=== PATIENT | female | born 1950 | race Caucasian/White ===

== ENCOUNTER 2017-03-16 09:20 | Emergency (ER) | payer OTHER ==
[2017-03-16 09:33] VITALS: BP 151/83; PULSE 91; RESP 18; TEMP 97.2; O2SAT 94
--- NOTE | 2017-03-16 09:54 | EDPHY ---
HPI/HX/ROS/PE/MDM Narrative: CHIEF COMPLAINT:Sore throat HPI: The patient is a 66-year-old female with no significant PMH. She complains of sore throat and cough for approximately 2-3 days. No fever. No body aches. No difficulty eating foods or water. No abdominal pain. No SOB. She got a flu shot this year. REVIEW OF SYSTEMS: Aside from elements discussed in the HPI, a comprehensive 10-point review of systems was reviewed and is negative. PMH: None significant. SOCIAL HISTORY: Denies drug or alcohol abuse. PHYSICAL EXAM: General:Patient is alert, in no acute distress. ENT: Hoarse voice. No drooling. Mild pharyngeal erythema. No exudates. No tonsillomegaly. No asymmetry. Neck: Normal inspection. Full range of motion. Respiratory:No respiratory distress. Breath sounds normal bilaterally. Cardiovascular: Regular rate and rhythm. Strong peripheral pulses. Normal cap refill. Neuro: Oriented x3. Normal motor function. Normal sensory function. MDM: Patient presents with pharyngitis. No evidence of [employer] or dehydration. No fever or body aches to suggest flu. Strep negative. - Data Points Laboratory Results: 03/16/17 03/16/17 Unknown 09:30 Group A Strep Screen NEGATIVE (NEGATIVE) Group A Strep DNA Pending General Time Seen by Provider: 03/16/17 09:27 Initial Vital Signs: Initial Vital Signs Temperature (C) 36.2 C 03/16/17 09:30 Heart Rate 91 03/16/17 09:30 Respiratory Rate 18 03/16/17 09:30 Blood Pressure 151/83 H 03/16/17 09:30 O2 Sat (%) 94 03/16/17 09:30 O2 Delivery Mode Room Air Allergies/Adverse Reactions: amoxicillin [Amoxicillin] Allergy (Mild, Verified 03/16/17 09:29) Hives levonorgestrel-ethinyl estradiol [From Seasonale] Allergy (Unknown, Verified 09/01 13:24) Other-Enter Comments Home Medications: Medication Instructions Recorded Claritin 03/16/17 Flonase Nasal [place] 03/16/17 Singulair 03/16/17 Departure - Departure Disposition: Home, Routine, Self-Care Clinical Impression: Pharyngitis Condition: Good Instructions: Pharyngitis (ED) Additional Instructions: Follow-up with your primary doctor within 72 hours. Return to the Emergency Department for high fever, difficulty swallowing, difficulty tolerating liquids , neck pain or stiffness, shortness of breath or other concerns. Use Tylenol and/or ibuprofen as directed for pain. Drink plenty of fluids. Referrals: Roxana Jean-Baptiste MD [Primary Care Provider] - As per Instructions
== END 2017-03-16 10:11 | disposition home or self-care (01) ==
LOC: CED 09:20
DX: J02.9 Acute pharyngitis, unspecified (principal)
CPT/HCPCS: 87880-PO